=== PATIENT | female | born 1960 | race Caucasian/White ===

== ENCOUNTER 2020-11-07 11:10 | Emergency (ER) | payer OTHER, SELFPAY ==
[2020-11-07 11:11] VITALS: BP 111/63; PULSE 114; RESP 18; TEMP 36.1; O2SAT 95; BMI 35.4
--- NOTE | 2020-11-07 11:28 | EKG12_ITS ---
Test Reason : Blood Pressure : / mmHG Vent. Rate : 098 BPM Atrial Rate : 098 BPM P-R Int : 166 ms QRS Dur : 092 ms QT Int : 404 ms P-R-T Axes : 013 -02 -15 degrees QTc Int : 515 ms Normal sinus rhythm T wave abnormality, consider anterior ischemia Abnormal ECG Confirmed by MARTI DIAZ, PEÑA ([id number]), video editor JOHN SPRINGER ([id number]) on 11/08/2020 2:10:12 PM Referred By: GERALD Confirmed By:PEÑA KIDD MD
--- NOTE | 2020-11-07 11:28 | CT_ITS ---
STUDY: CTA CHEST REASON FOR EXAM: Female, 60 years old. DYSPNEA, +COVID 10/29 RADIATION DOSAGE (If Supplied By Facility): CTDIvol = ( 11.64 ) mGy, DLP = ( 434.19 ) mGycm TECHNIQUE: The examination was performed with the intravenous administration of IV 100mL Isovue-370. Post-processing of the angiographic images was performed, with multiplanar reformation and 3D reconstruction. Individualized dose optimization techniques were used for this CT. COMPARISON: None. FINDINGS: Normal enhancement of the main pulmonary artery and right and left pulmonary arteries. Normal enhancement of the bilateral peripheral pulmonary arteries. There is no demonstrated pulmonary embolism. Normal thoracic aorta and visualized great vessels. There is no demonstrated aortic dissection. Normal heart and pericardium. There are visualized mediastinal lymph nodes, which are within normal size limits, and with normal morphology. There is a 1.3 cm x 1 cm right hilar lymph node. Normal visualized trachea and bronchi. The lungs are well expanded. There are multiple patchy areas of groundglass appearance involving both lungs in the preferential peripheral distribution. With the patient''s history of a positive Covid, this may be related to Covid with pneumonic infiltrates. Normal pleura. Normal chest wall structures. Normal osseous structures. Cholelithiasis. Fatty infiltration of the liver. CT/CTA Chest W/WO Contrast IMPRESSION: Bilateral patchy areas of groundglass appearance in the preferential peripheral distribution as described. No evidence of pulmonary embolism. Electronically Signed: Carlos Hill, at 13:01 EST , Service support ,
--- NOTE | 2020-11-07 11:30 | ED.VIS.GEN ---
History of Present Illness Chief Complaint: Shortness of Breath Informant: Patient Narrative: 60-year-old female presents the emergency department for the chief complaint of dyspnea. She tells me that she tested Covid positive on 10/29. She has been experiencing viral syndrome-like symptoms including fever myalgias and arthralgias. She has had diarrhea. She has been able to eat and drink. She states for the past couple days she has had worsening shortness of breath. She did a virtual visit with her doctor advised her to come to the emergency department. She notes a cough but no significant sputum production. She has a history of hypertension. Former smoker. Past Medical History - Allergies and Home Meds Allergies/Adverse Reactions: Allergies hydrocodone bitartrate [From Vicodin] Adverse Reaction (Verified 11/07/20 11:13) Other Primary Care Physician: Zeeshan Ramos DO [Primary Care Provider] - Past Medical History: - - Hypertension Surgical History: noncontributory Smoking Status: Former smoker Drugs: None Review of Systems General: Reports: Chills, Fever, Malaise. Denies: Sweats Eyes: Denies: Visual changes - bilaterally, Diplopia ENT: Denies: Rhinorrhea, Sore throat Cardiovascular: Denies: Chest pain, Palpitations Respiratory: Reports: Dyspnea, Cough. Denies: Dyspnea on exertion Gastrointestinal: Reports: Diarrhea. Denies: Abdominal pain, Nausea, Vomiting, Melena, Hematochezia Genitourinary: Denies: Dysuria, Hematuria, Frequency Musculoskeletal: Reports: Myalgias, Arthralgias. Denies: Back pain, Extremity Pain Skin: Denies: Rash, Wounds Neurological: Denies: Headache, Weakness, Numbness Physical Exam Vital Signs/Narrative: Vital Signs Temp Pulse Resp BP Pulse Ox 11/07/20 11:11 97 F L 114 H 18 111/63 95 Inital Vital Signs reviewed: Yes General: Well nourished, Well developed, No Acute Distress Head: Normocephalic, Atraumatic Eyes: Perrl, EOMI ENT: Moist mucous membranes, No rhinorrhea Neck: Supple, Nontender Cardiovascular: Regular rate, No murmurs, Tachycardia Respiratory: No distress, CTA bilaterally, Chest nontender, - - Patient has conversational dyspnea but still speaks in full sentences and is 95% on room air. Abdomen: Soft, Nontender, Nondistended, Normal bowel sounds Back: Nontender, Normal Inspection Extremities: Nontender, No edema Skin: Normal color, No rash Neurological: Alert, Oriented x3, Cranial nerves II-XII grossly intact, Normal Strength, Normal Sensation Psychological: Normal affect, Normal Mood Diagnostic/Tx/Re-eval Clinical Impression(s) from Imaging Studies Chest CTA 11/07/20 11:28 IMPRESSION: Bilateral patchy areas of groundglass appearance in the preferential peripheral distribution as described. No evidence of pulmonary embolism. Electronically Signed: Carlos Harveytamiko, at 13:01 EST , Service support , Laboratory Last Values WBC 5.6 K/mm3 (4.4-11.0) 11/07/20 11:50 RBC 4.48 M/mm3 (4.2-5.4) 11/07/20 11:50 Hgb 13.8 g/dL (12.0-15.0) 11/07/20 11:50 Hct 41.3 % (37-47) 11/07/20 11:50 MCV 92.2 fL (81-99) 11/07/20 11:50 MCH 30.8 pg (27.0-32.0) 11/07/20 11:50 MCHC 33.4 g/dL (32-36) 11/07/20 11:50 RDW Std Deviation 42.8 fl (35.1-43.9) 11/07/20 11:50 RDW Coeff of Rachel 12.6 % (11.6-14.6) 11/07/20 11:50 Plt Count 138 K/mm3 (150-450) L 11/07/20 11:50 MPV 12.5 fl (6.2-12.0) H 11/07/20 11:50 Immature Gran % (Auto) 0.500 % (0.0-0.9) 11/07/20 11:50 Neut % (Auto) 76.0 % (47-70) H 11/07/20 11:50 Lymph % (Auto) 16.5 % (19-41) L 11/07/20 11:50 [place] % (Auto) 6.8 % (0-10) 11/07/20 11:50 Eos % (Auto) 0.0 % (0-5) 11/07/20 11:50 Baso % (Auto) 0.2 % (0-1) 11/07/20 11:50 Absolute Neuts (auto) 4.3 X10^3/uL (2.0-7.7) 11/07/20 11:50 Absolute Lymphs (auto) 0.92 X10^3/uL (0.83-4.51) 11/07/20 11:50 Nucleated RBC % 0 % (0-5) 11/07/20 11:50 Sodium 141 mmol/L (136-145) 11/07/20 11:50 Potassium 3.0 mmol/L (3.5-5.1) L 11/07/20 11:50 Chloride 107 mmol/L (98-107) 11/07/20 11:50 Carbon Dioxide 27.0 mmol/L (21.0-32.0) 11/07/20 11:50 Anion Gap 7 (5-15) 11/07/20 11:50 BUN 16 mg/dL (7-18) 11/07/20 11:50 Creatinine 0.96 mg/dL (0.55-1.02) 11/07/20 11:50 Estim Creat Clear Calc 52.20 ml/min 11/07/20 11:50 Est GFR (MDRD) Af Amer 76 mL/min (>60) 11/07/20 11:50 Est GFR (MDRD) Non-Af 63 mL/min (>60) 11/07/20 11:50 BUN/Creatinine Ratio 16.6 RATIO (-20) 11/07/20 11:50 Glucose 106 mg/dL (74-106) 11/07/20 11:50 Calcium 8.8 mg/dL (8.5-10.1) 11/07/20 11:50 Total Bilirubin 0.50 mg/dL (0.20-1.00) 11/07/20 11:50 AST 81 U/L (15-37) H 11/07/20 11:50 ALT 138 U/L (13-56) H 11/07/20 11:50 Alkaline Phosphatase 103 U/L (45-117) 11/07/20 11:50 Troponin I < 0.015 ng/mL (<0.045) 11/07/20 11:50 B-Natriuretic Peptide 3.9 pg/mL (0-100) 11/07/20 11:50 Total Protein 7.3 g/dL (6.4-8.2) 11/07/20 11:50 Albumin 3.4 g/dL (3.2-5.0) 11/07/20 11:50 Globulin 3.9 g/dL (2.2-4.2) 11/07/20 11:50 Albumin/Globulin Ratio 0.9 RATIO (0.9-2.4) 11/07/20 11:50 - Medical Decision Making CTA of the patient's chest shows no pulmonary embolism. A typical Covid pattern is noted. Her blood work is reassuring. She ambulates and is not hypoxic. Patient was given reassurance that while she is having shortness of breath she is not hypoxic. I think she should be okay for discharge. She continue to isolate and monitor herself return if worsening or concerns. ED Disposition - Plan for ED Patient: Disposition: Home or Assisted Living Diagnosis: COVID-19, Dyspnea Instructions: Coronavirus Disease 2019 (COVID-19): Caring for Yourself or Others, COVID-19: Lying in a Prone Position (Proning) Referrals: Zeeshan Ramos, DO [Primary Care Provider] - As Needed
[2020-11-07 12:00] LABS: Absolute Lymphocyte Count 0.92 X10^3/uL (0.83-4.51); Absolute Neutrophil Count 4.3 X10^3/uL (2.0-7.7); Basophil# 0.01 X10^3/uL; Basophil% 0.2 % (0-1); Hematocrit 41.3 % (37-47); Hemoglobin 13.8 g/dL (12.0-15.0); Lymphocyte # 0.92 X10^3/ul (4.0); Lymphocyte % 16.5 % (19-41); Mean Corp Hgb Conc 33.4 g/dL (32-36); Mean Corpuscular Hgb 30.8 pg (27.0-32.0); Mean Corpuscular Volume 92.2 fL (81-99); Mean Platelet Vol. 12.5 fl (6.2-12.0); Monocyte# 0.38 X10^3/uL; Monocyte% 6.8 % (0-10); NRBC Flagged by Analyzer 0 % (0-5); Neutrophil # 4.25 X10^3/uL (2.7-7.7); Platelet Count 138 K/mm3 (150-450); RBC Distribution Width CV 12.6 % (11.6-14.6); RBC Distribution Width SD 42.8 fl (35.1-43.9); Red Blood Count 4.48 M/mm3 (4.2-5.4); White Blood Count 5.6 K/mm3 (4.4-11.0)
[2020-11-07 12:15] LABS: ALB/GLOB Ratio 0.9 RATIO (0.9-2.4); AST(SGOT) 81 U/L (15-37); Alanine Aminotransfer ALT/SGPT 138 U/L (13-56); Albumin, Serum 3.4 g/dL (3.2-5.0); Alkaline Phosphatase 103 U/L (45-117); Anion Gap 7 (5-15); BUN 16 mg/dL (7-18); BUN/Creat Ratio 16.6 RATIO (10-20); Calcium,Total 8.8 mg/dL (8.5-10.1); Chloride 107 mmol/L (98-107); Creatinine, Serum 0.96 mg/dL (0.55-1.02); EST Glomerular Filtration Rate 63 mL/min (>60); Est Glom Filt Rate - Afr Amer 76 mL/min (>60); Globulin 3.9 g/dL (2.2-4.2); Glucose 106 mg/dL (74-106); Protein, Total 7.3 g/dL (6.4-8.2); Sodium Level 141 mmol/L (136-145)
[2020-11-07 12:20] LABS: BNP,B-Type NATRIURETIC PEPTIDE 3.9 pg/mL (0-100)
[2020-11-07 12:24] VITALS: BP 99/65; PULSE 92; RESP 15; TEMP 36.4; O2SAT 95
[2020-11-07 12:44] VITALS: O2SAT 96
[2020-11-07 14:08] VITALS: BP 102/74; PULSE 81; RESP 20; O2SAT 96
== END 2020-11-07 14:08 | disposition home or self-care (01) ==
PROVIDERS: Emergency Provider Emergency Medicine; PCP Student in an Organized Health Care Education/Training Program
DX: U07.1 COVID-19 (principal); R06.00 Dyspnea, unspecified; I10 Essential (primary) hypertension; Z87.891 Personal history of nicotine dependence
CPT/HCPCS: 71275; 80053; 83880; 84484; 85025; 93005; 99284; Q9967

== ENCOUNTER 2021-03-07 10:30 | Outpatient (RCR) | payer OTHER, SELFPAY ==
[2021-03-13] MEDS: COVID-19 VACC, MRNA(PFIZER)/PF 30 MCG/0.3 ML SYRINGE IM (14:17)
== END 2021-05-06 23:59 ==
LOC: IMMUN 10:30
PROVIDERS: PCP Student in an Organized Health Care Education/Training Program; Visit Provider Family Medicine
DX: Z23 Encounter for immunization (principal)
CPT/HCPCS: 0002A; 91300